=== PATIENT | female | born 1965 | race African-American/Black ===

== ENCOUNTER 2017-01-30 08:28 | Emergency (ER) | payer BC, MEDICAID ==
[~2017-01-30] VITALS: Ht 162.6 cm; Wt 117.0 kg
[2017-01-30] MEDS ORDERED: KETOROLAC 30MG/ML VIAL IM ONE (10:15)
[2017-01-30 13:44] VITALS: BP 144/81
== END 2017-01-30 14:49 | disposition home or self-care (01) ==
LOC: ER 10:32
DX: M79.605 Pain in left leg (principal); M19.90 Unspecified osteoarthritis, unspecified site; J45.909 Unspecified asthma, uncomplicated; G43.909 Migraine, unspecified, not intractable, without status migrainosus; I10 Essential (primary) hypertension
CPT/HCPCS: 93971; 96372; 99284; J1885; L1830; Z7610